=== PATIENT | male | born 1955 | race Caucasian/White ===

== ENCOUNTER 2017-09-06 21:31 | Emergency (ER) | payer MEDICARE ==
[2017-09-06 22:28] LABS: #Basophils 0.1 thou/uL (0.0-0.2); #Eosinphils 0.1 thou/uL (0.0-0.7); #Lymphocytes 1.5 thou/uL (1.20-3.40); #Monocytes 0.9 thou/uL (0.11-0.59); #Neutrophils 4.5 thou/uL (1.40-6.50); %Basophils 1.1 % (0.0-1.0); %Eosinophils 1.5 % (0.0-10.0); %Lymphocytes 21.1 % (21.0-51.0); %Monocytes 12.3 % (0.0-10.0); Hemoglobin 12.5 g/dL (14.0-18.0); Mean Corpuscular HGB CONC 34.2 g/dL (32.0-36.0); Mean Corpuscular Hemoglobin 31.5 pg (27.0-31.0); Mean Corpuscular Volume 92.1 fl (80.0-94.0); Mean Platelet Volume 7.6 fL (7.4-10.4); Platelet Count 340 thou/uL (130-400); Red Blood Cell (RBC) Count 3.96 mill/uL (4.70-6.10); White Blood Cell (WBC) Count 7.1 thou/uL (4.8-10.8)
[2017-09-06 22:44] LABS: Acetaminophen Less than 6.0 mcg/mL (10.0-30.0); Alcohol 297 mg/dL (Less than 10); Salicylate Less than 8.0 mg/dL (15.0-30.0)
[2017-09-06 22:46] LABS: ALT (SGPT) 303 U/L (8-55); AST (SGOT) 370 U/L (5-34); Albumin 3.9 g/dL (3.5-5.0); Alcohol 302 mg/dL (Less than 10); Alkaline Phosphatase 77 U/L (40-150); Anion Gap 18 mmol/L (10-20); BUN (Urea Nitrogen) 15 mg/dL (8.4-25.7); CK (CPK) 312 U/L (30-200); Calc. Creatinine Clearance 0 mL/min (70-130); Calcium 8.9 mg/dL (7.8-10.44); Carbon Dioxide 26 mmol/L (22-29); Chloride 100 mmol/L (98-107); Estimated GFR-MDRD 84; Globulin 3.6 g/dL (2.4-3.5); Glucose 102 mg/dL (70-105); Lipase 18 U/L (8-78); Potassium 3.1 mmol/L (3.5-5.1); Protein, Total 7.5 g/dL (6.0-8.3); Sodium 141 mmol/L (136-145)
[2017-09-06 22:49] LABS: CKMB 1.5 ng/mL (0-6.6); Troponin I Less than 0.010 ng/mL (< 0.028)
--- NOTE | 2017-09-06 23:14 | CT ---
CT BRAIN NONCONTRAST: 09/06/17 HISTORY: 61-year-old male status post acute head trauma from fall, with loss of consciousness. FINDINGS: There is no midline shift or any other mass effect. There is no evidence of acute intracranial hemor rhage, large cortical infarct, obstructive hydrocephalus, or extraaxial fluid collection. The calvar ium is intact. There is diffuse parenchymal volume loss. There are low attenuation areas in the whi te matter. These are nonspecific, but in a patient of this age, they are probably chronic ischemic w junior matter changes due to microvascular atherosclerosis. IMPRESSION: 1) No acute intracranial findings. 2) Involutional changes and chronic ischemic white matter changes. jn [] POS: [facility]
--- NOTE | 2017-09-06 23:16 | CT ---
CT CERVICAL SPINE NONCONTRAST: 09/06/17 HISTORY: 61-year-old male status post acute cervical trauma from fall. FINDINGS: There are no jumped or perched facets. There is no evidence of acute fracture. The vertebral body h eights are maintained. There is no prevertebral soft tissue swelling. IMPRESSION: No evidence of acute fracture or acute traumatic subluxation. natalia [] POS: [facility]
--- NOTE | 2017-09-06 23:19 | RAD ---
RADIOGRAPH CHEST 1 VIEW: DATE: 09/06/17 TIME: 10:22 p.m. HISTORY: 61-year-old male with acute chest pain. FINDINGS: There is no air space density, pulmonary edema, or pneumothorax. The lateral costophrenic angles are sharp. There are multiple old, significantly displaced fracture deformities of left posterior ribs. There is no significant interval change compared to 12/22/14. IMPRESSION: 1. No acute pulmonary findings. 2. Multiple old, traumatic, displaced left rib fractures. natalia [] POS: [facility]
[2017-09-06] MEDS ORDERED: Potassium Chloride 20 MEQ TAB ONE (23:36)
== END 2017-09-06 23:58 | disposition home or self-care (01) ==
LOC: ERS 21:31
DX: E87.6 Hypokalemia (principal); E05.90 Thyrotoxicosis, unspecified without thyrotoxic crisis or storm; I10 Essential (primary) hypertension; K21.9 Gastro-esophageal reflux disease without esophagitis; F32.9 Major depressive disorder, single episode, unspecified; F41.9 Anxiety disorder, unspecified; H54.7 Unspecified visual loss; W19.XXXA Unspecified fall, initial encounter; Y92.009 Unspecified place in unspecified non-institutional (private) residence as the place of occurrence of the external cause
CPT/HCPCS: 36415; 70450; 71045; 72125; 80053; 80307; 82553; 83690; 83880; 84484; 85025; 93005; 94760

== ENCOUNTER 2017-11-28 09:38 | Outpatient (CLI) | payer MEDICARE ==
--- NOTE | 2017-11-28 12:51 | ULT ---
ABDOMINAL ULTRASOUND: 11/28/2017 HISTORY: Hepatitis C. FINDINGS: The liver demonstrates increased echogenicity, suggesting diffuse fatty infiltration. The liver is n ot enlarged. There is very mild gallbladder wall thickening, with the gallbladder wall measuring 0.37 cm in thickn ess. No gallbladder calculi are seen. The common duct measures 0.4 cm in diameter, which is within normal limits. The pancreas is mostly obscured by bowel gas. The visualized portions of the IVC, the visualized portions of the abdominal aorta, and the bilateral kidneys demonstrate a normal sonographic appearance. The right kidney measures 11.7 cm in length, a nd the left kidney measures 10.7 cm in length. IMPRESSION: 1. Mild fatty infiltration of the liver. 2. Very mild gallbladder wall thickening, which is nonspecific but can be seen with hypoproteinemia, cholecystitis (in the correct clinical scenario), or liver disease, versus other etiologies. 3. The common duct is normal in caliber. POS: [facility]
== END 2017-11-28 09:39 | disposition home or self-care (01) ==
LOC: ULT 09:38
PROVIDERS: ATTEND Internal Medicine
DX: B18.2 Chronic viral hepatitis C (principal); K76.0 Fatty (change of) liver, not elsewhere classified; K82.8 Other specified diseases of gallbladder
CPT/HCPCS: 76700